=== PATIENT | female | born 1990 | race African-American/Black ===

== ENCOUNTER 2022-12-15 17:26 | Inpatient (IN) | payer OTHER ==
[~2022-12-15 17:26] MED LIST: Bupivacaine 0.25% HCL 30 ML VIAL ONE; Terbutaline Sulfate 1 MG/ML VIAL ONE; ePHEDrine Sulfate 50 MG/10 ML VIAL ONE
[2022-12-15 17:51] VITALS: BMI 53.7
[2022-12-15] MEDS ORDERED: Promethazine HCl 25 MG/ML VIAL IM PRN (18:07)
[2022-12-15] MEDS ORDERED: Labetalol HCl 100 MG/20 ML VIAL SLOW IVP PRN ×2 (18:07)
[2022-12-15] MEDS ORDERED: fentaNYL 50 mcg/mL 1 mL Vial SLOW IVP PRN (18:07)
[2022-12-15] MEDS ORDERED: HYDROcodone/Acetaminophen 5/325 mg Tablet PO PRN (18:07)
[2022-12-15] MEDS ORDERED: Ibuprofen 800 MG TAB PO PRN (18:07)
[2022-12-15] MEDS ORDERED: Calcium Gluc 4.6 MEQ/10 ML (100 MG/ML) SLOW IVP PRN (18:07)
[2022-12-15] MEDS ORDERED: Carboprost 250 MCG/ML AMP IM PRN (18:07)
[2022-12-15] MEDS ORDERED: Acetaminophen 500 MG TAB PO PRN (18:07)
[2022-12-15] MEDS ORDERED: Diphenoxylate HCl/Atropine Tablet PO PRN (18:07)
[2022-12-15] MEDS ORDERED: Misoprostol 200 MCG TAB PR PRN (18:07)
[2022-12-15] MEDS ORDERED: Lorazepam 2 MG/ML VIAL SLOW IVP PRN (18:07)
[2022-12-15] MEDS ORDERED: Tranexamic Acid 1,000 MG/10 ML VIAL IVP PRN (18:07)
[2022-12-15] MEDS ORDERED: hydrALAZINE 20 MG/ML VIAL SLOW IVP PRN ×3 (18:07)
[2022-12-15] MEDS ORDERED: Methylergonovine 0.2 MG/ML VIAL IM PRN (18:07)
[2022-12-15] MEDS ORDERED: Lidocaine 1% (PF) 30 ML VIAL SC PRN (18:07)
[2022-12-15] MEDS ORDERED: Oxytocin 30 units/NS 500 ML 500 ML IV SCH ×3 (18:15)
[2022-12-15] MEDS ORDERED: Penicillin G Potassium 5 MILL.UNITS in Sodium Chloride 0.9% 100 ML IVPB SCH (18:15)
[2022-12-15 19:09] LABS: Creatinine, Urine Less than 20.00 mg/dL (47-110); Protein, Urine Random Quant Less than 10 mg/dL (1-14)
[2022-12-15 20:45] LABS: Hematocrit 32.8 % (34.9-44.5); Hemoglobin 10.7 g/dL (12.0-15.5); Mean Corpuscular HGB CONC 32.6 g/dL (32.0-36.0); Mean Corpuscular Hemoglobin 27.8 pg (27.0-33.0); Mean Corpuscular Volume 85.2 fl (81.6-98.3); Mean Platelet Volume 10.2 fl (7.4-10.4); Platelet Count 336 10x3/uL (150-450); RBC Distribution Width 13.5 % (11.5-14.5); Red Blood Cell (RBC) Count 3.85 10x6/uL (3.90-5.03)
[2022-12-15 20:59] LABS: ALT (SGPT) 10 U/L (8-55); AST (SGOT) 14 U/L (5-34); Albumin 3.3 g/dL (3.5-5.0); Alkaline Phosphatase 94 U/L (40-110); Anion Gap 13 mmol/L (10-20); BUN (Urea Nitrogen) 9 mg/dL (7.0-18.7); Bilirubin, Total 0.2 mg/dL (0.2-1.2); Calc. Creatinine Clearance 304 mL/min (70-130); Carbon Dioxide 19 mmol/L (22-29); Chloride 105 mmol/L (98-107); Estimated GFR 121; Globulin 3.9 g/dL (2.4-3.5); Glucose 82 mg/dL (70-105); Potassium 4.2 mmol/L (3.5-5.1); Protein, Total 7.2 g/dL (6.0-8.3); Sodium 133 mmol/L (136-145)
[2022-12-15 21:17] LABS: Syphilis Antibody Nonreactive (Nonreactive); Syphilis Antibody Index 0.09 S/CO (<1.00 Non-Reactive)
[2022-12-15 21:18] LABS: HBSAg Index 0.24 S/CO (0-0.99); Hep B Surf Ag - L&D Non-Reactive S/CO (NonReactive)
[2022-12-16] MEDS: Penicillin G 2.5 MILL.units 2.5 MILL.UNITS in Premix Bag 1 BAG IVPB SCH ×6 (00:23→20:42)
[2022-12-16] MEDS ORDERED: Misoprostol 100 MCG TAB PO SCH (03:30)
[2022-12-16] MEDS: Misoprostol 100 MCG TAB VAG SCH ×3 (08:18→20:42)
[2022-12-16] MEDS ORDERED: fentaNYL/Ropivacaine Epidural 100 ML ONE (10:36)
[2022-12-16] MEDS ORDERED: Lactated Ringer's 500 ML IV PRN (11:25)
[2022-12-16] MEDS ORDERED: Promethazine HCl 25 MG/ML VIAL IM PRN (11:25)
[2022-12-16] MEDS ORDERED: Ondansetron PF 4 MG/2 ML Vial IVP PRN (11:25)
[2022-12-16] MEDS ORDERED: diphenhydrAMINE 50 MG/ML VIAL IVP PRN (11:25)
[2022-12-16] MEDS ORDERED: Naloxone HCl 0.4 mg/ml Vial IVP PRN ×2 (11:25)
[2022-12-16] MEDS ORDERED: ePHEDrine Sulfate 50 MG/10 ML VIAL SLOW IVP PRN (11:25)
[2022-12-16] MEDS ORDERED: Acetaminophen 325 MG TAB PO PRN (11:25)
[2022-12-16] MEDS ORDERED: Moisturizing Cream (Eucerin) 113 GM JAR TOP PRN (11:25)
[2022-12-16] MEDS ORDERED: fentaNYL 2 mcg/Ropivacaine 0.2% Epidural 100 ML CADD EPIDURAL SCH (11:30)
[2022-12-16] MEDS ORDERED: Communication Order-Pharmacy FS SCH (11:30)
[2022-12-16] MEDS: Ondansetron PF 4 MG/2 ML Vial IVP PRN ×2 (14:26→20:42)
[2022-12-16] MEDS: Lactated Ringer's 1,000 ML IV SCH (20:41)
[2022-12-17] MEDS: Misoprostol 100 MCG TAB VAG SCH (01:26)
[2022-12-17] MEDS: Penicillin G 2.5 MILL.units 2.5 MILL.UNITS in Premix Bag 1 BAG IVPB SCH (01:26)
[2022-12-17] MEDS ORDERED: diphenhydrAMINE 25 MG CAP PO PRN (01:27)
[2022-12-17] MEDS ORDERED: Promethazine HCl 25 MG/ML VIAL IM PRN (01:27)
[2022-12-17] MEDS ORDERED: Bisacodyl 10 MG SUPP PR PRN (01:27)
[2022-12-17] MEDS ORDERED: Boostrix 0.5 ML (Tdap) VIAL (>/=7 yrs of age) IM ONE (01:27)
[2022-12-17] MEDS ORDERED: Lanolin Ointment 7 GM TUBE TOP PRN (01:27)
[2022-12-17] MEDS ORDERED: Benzocaine-Menthol 82.5 ML CAN TOP PRN (01:27)
[2022-12-17] MEDS ORDERED: HYDROcodone/Acetaminophen 5/325 mg Tablet PO PRN (01:27)
[2022-12-17] MEDS ORDERED: hydrALAZINE 20 MG/ML VIAL SLOW IVP PRN (01:27)
[2022-12-17] MEDS ORDERED: Milk Of Magnesia 30 ML UDCUP PO PRN (01:27)
[2022-12-17] MEDS ORDERED: Ondansetron PF 4 MG/2 ML Vial IVP PRN (01:27)
[2022-12-17] MEDS: Ibuprofen 800 MG TAB PO SCH ×3 (05:46→21:33)
[2022-12-17] MEDS: Ferrous Sulfate 325 MG TAB PO SCH ×2 (08:00→19:08)
[2022-12-17] MEDS: Docusate 100 MG CAP PO SCH ×2 (08:33→21:33)
[2022-12-17] MEDS: Prenatal Vitamin 1 TAB PO SCH (08:33)
[2022-12-17] MEDS: Labetalol HCl 100 MG TAB PO SCH ×2 (08:34→21:34)
[2022-12-18] MEDS: Ibuprofen 800 MG TAB PO SCH (05:22)
[2022-12-18] MEDS: Docusate 100 MG CAP PO SCH (07:49)
[2022-12-18] MEDS: Prenatal Vitamin 1 TAB PO SCH (07:49)
[2022-12-18] MEDS: Labetalol HCl 100 MG TAB PO SCH (07:53)
[2022-12-18 08:40] VITALS: BP 133/63; TEMP 98.3
[2022-12-18] MEDS: Ferrous Sulfate 325 MG TAB PO SCH (14:21)
== END 2022-12-18 14:15 | disposition home or self-care (01) | DRG 807 ==
LOC: CSHLD/OP 17:26 → CSHLD 19:43 → CSHPP 12-17 02:10
PROVIDERS: ADMIT Family Medicine; ATTEND Family Medicine
PROC: 3E0P7VZ Introduction of Hormone into Female Reproductive, Via Natural or Artificial Opening (ICD-10-PCS; 2022-12-16)
PROC: 10907ZC Drainage of Amniotic Fluid, Therapeutic from Products of Conception, Via Natural or Artificial Opening (ICD-10-PCS; 2022-12-16)
PROC: 10H07YZ Insertion of Other Device into Products of Conception, Via Natural or Artificial Opening (ICD-10-PCS; 2022-12-16)
PROC: 10E0XZZ Delivery of Products of Conception, External Approach (ICD-10-PCS; principal; 2022-12-17)
PROC: 0HQ9XZZ Repair Perineum Skin, External Approach (ICD-10-PCS; 2022-12-17)
DX: O13.4 Gestational [pregnancy-induced] hypertension without significant proteinuria, complicating childbirth (principal); Z37.0 Single live birth; Z3A.37 37 weeks gestation of pregnancy; O69.81X0 Labor and delivery complicated by cord around neck, without compression, not applicable or unspecified; O99.214 Obesity complicating childbirth; O99.824 Streptococcus B carrier state complicating childbirth; O70.0 First degree perineal laceration during delivery; E66.01 Morbid (severe) obesity due to excess calories
CPT/HCPCS: 36415; 51702; 80053; 82570; 84156; 85027; 86780; 86850; 86900; 86901; 87340; 99285; J2405; J2540; J3010; J3105; J3490; S0020

== ENCOUNTER 2025-01-29 11:54 | Outpatient (CLI) | payer MEDICAID | END 2025-01-29 11:55 | disposition home or self-care (01) | LOC: CSHMAMMO 11:54 | PROVIDERS: ATTEND Obstetrics & Gynecology | DX: Z12.31 Encounter for screening mammogram for malignant neoplasm of breast (principal); Z80.3 Family history of malignant neoplasm of breast | CPT/HCPCS: 77063; 77067 ==